=== PATIENT | male | born 1990 | race Caucasian/White ===

== ENCOUNTER 2017-03-01 16:03 | Emergency (ER) | payer OTHER ==
[~2017-03-01] VITALS: Ht 185.4 cm; Wt 108.0 kg
[~2017-03-01 16:03] MED LIST: ASPIRIN325 MG PO; ATIVAN1 MG PO; BACTRIM,SEPT1 TABLET PO; BENTYL10 MG PO; CHILD ASPIRIN81 M1 PO; FLEXERIL10 MG PO; KEFLEX500 MG PO; METHADONE H5 MG/5 ML PO; METHADONE1 MG/1 ML PO; METHADOSE40 MG PO; NAPROSYN500 MG PO; NAPROXEN500 MG PO; OXYCODONE HCL5 M1 PO; ROXICODONE5 MG PO; ULTRAM50 MG PO; ZOFRAN ODT4 MG PO
[2017-03-01 17:04] LABS: EOSINOPHIL (%) 1.2 % (0-5); EOSINOPHIL COUNT 0.1 K/uL (0-0.3); HEMATOCRIT 47.6 % (38.0-50.0); IMMATURE GRANULOCYTE (%) 0.3 % (0.0-0.7); INSTRUMENT ABS NEUTROPHIL CT 4.1 K/uL; LYMPHOCYTE COUNT 1.5 K/uL (1.0-2.8); MCH 30.5 PG (29.0-34.0); MCHC 35.3 G/DL (30.0-36.0); MCV 86.4 FL (86-99); MEAN PLAT.VOLUME 10.5 uM^3 (9.0-12.4); MONOCYTE (%) 13.9 % (3-12); MONOCYTE COUNT 0.9 K/uL (0-0.8); NEUTROPHIL (%) 61.6 % (45-76); NEUTROPHIL COUNT 4.1 K/uL (1.8-6.4); PLATELET COUNT 240 K/uL (156-360); RBC DIS.WIDTH-SD 38.4 % (39-53); RED BLOOD COUNT 5.51 M/uL (4.00-5.50); WHITE BLOOD COUNT 6.6 K/uL (4.1-10.2)
[2017-03-01 17:12] LABS: CHLORIDE 103 mEq/L (99-109); POTASSIUM 3.7 mEq/L (3.7-5.4); SODIUM 142 mEq/L (136-147)
[2017-03-01 17:14] LABS: GLUCOSE 96 mg/dL (70-99)
[2017-03-01 17:16] LABS: ANION GAP 12 MEQ/L (2-14); TOTAL BILIRUBIN 0.8 mg/dL (0.0-1.0)
[2017-03-01 17:18] LABS: ALKALINE PHOSPHATASE 33 IU/L (3-129); GFR ESTIMATE (CALCULATED) > 59 mL/min/
[2017-03-01 17:19] LABS: UREA NITROGEN (BUN) 15 mg/dL (9-23)
[2017-03-01 17:22] LABS: LIPASE 20 U/L (1.0-51.0)
[2017-03-01 18:02] LABS: ADD MIUA? YES; BILIRUBIN SMALL; BLOOD NEGATIVE; COLOR YELLOW ((YELLOW)); GLUCOSE (STRIP) NEGATIVE; KETONES NEGATIVE; LEUKOCYTES NEGATIVE; NITRITE NEGATIVE; PROTEIN (STRIP) 30; SPECIFIC GRAVITY 1.025 (1.000-1.030)
[2017-03-01 18:08] LABS: BACTERIA NONE SEEN /HPF; EPITHELIAL CELLS RARE /HPF; MUCUS TRACE /LPF; RED BLOOD CELLS 0-5 /HPF (0-5); WHITE BLOOD CELLS 0-5 /HPF (0-5)
[2017-03-01] MEDS ORDERED: PEPCID20 MG PO (20:01)
[2017-03-01] MEDS ORDERED: CARAFATE1 GM PO (20:01)
[2017-03-01 20:15] VITALS: BP 132/74
== END 2017-03-01 20:16 | disposition home or self-care (01) ==
LOC: EME 16:03
PROVIDERS: Physician Assistant
DX: R10.13 Epigastric pain (principal); F17.200 Nicotine dependence, unspecified, uncomplicated
CPT/HCPCS: 76705; 80053; 81003; 83690; 85025; 99281; 99284; J1885

== ENCOUNTER 2017-05-11 12:00 | Emergency (ER) | payer OTHER ==
[~2017-05-11] VITALS: Ht 185.4 cm; Wt 106.8 kg
[~2017-05-11 12:00] MED LIST changes: +CARAFATE1 GM PO; +PEPCID20 MG PO
[2017-05-11 13:21] LABS: HEMATOCRIT 46.2 % (38.0-50.0); MCH 30.2 PG (29.0-34.0); MCHC 34.4 G/DL (30.0-36.0); MCV 87.7 FL (86-99); MEAN PLAT.VOLUME 10.6 uM^3 (9.0-12.4); PLATELET COUNT 213 K/uL (156-360); RBC DIS.WIDTH-CV 12.1 % (11.8-14.6); RBC DIS.WIDTH-SD 38.6 % (39-53); RED BLOOD COUNT 5.27 M/uL (4.00-5.50); WHITE BLOOD COUNT 7.6 K/uL (4.1-10.2)
[2017-05-11 13:31] LABS: CHLORIDE 109 mEq/L (99-109); POTASSIUM 4.4 mEq/L (3.7-5.4); SODIUM 138 mEq/L (136-147)
[2017-05-11 13:32] LABS: GLUCOSE 87 mg/dL (70-99)
[2017-05-11 13:34] LABS: ANION GAP 6 MEQ/L (2-14)
[2017-05-11 13:36] LABS: GFR ESTIMATE (CALCULATED) > 59 mL/min/
[2017-05-11 13:37] LABS: UREA NITROGEN (BUN) 16 mg/dL (9-23)
[2017-05-11 13:43] LABS: TROP-I INTERPRETATION NEGATIVE; TROPONIN-I < 0.01 ng/mL (0.0-0.30)
[2017-05-11] MEDS ORDERED: PERCOCET 5/31 TABLET PO (14:44)
[2017-05-11] MEDS ORDERED: MOTRIN800 MG PO (14:44)
[2017-05-11 15:13] VITALS: BP 118/85
== END 2017-05-11 15:42 | disposition home or self-care (01) ==
LOC: EME 12:00
DX: R07.89 Other chest pain (principal); R94.31 Abnormal electrocardiogram [ECG] [EKG]; F17.200 Nicotine dependence, unspecified, uncomplicated
CPT/HCPCS: 71020; 80048; 84484; 85027; 93005; 99281; 99284